=== PATIENT | female | born 1965 | race Caucasian/White ===

== ENCOUNTER 2016-09-15 14:50 | Emergency (ER) | payer MEDICAID ==
[~2016-09-15] VITALS: Ht 154.9 cm; Wt 76.2 kg
[~2016-09-15 14:50] MED LIST: CAPE500T24 PO; CIPR500T87 PO; OXYC5CAP4 PO
[2016-09-15 15:06] VITALS: BP 115/74
== END 2016-09-15 15:40 | disposition home or self-care (01) ==
LOC: ED 15:34
DX: L25.9 Unspecified contact dermatitis, unspecified cause (principal); I10 Essential (primary) hypertension
CPT/HCPCS: 99283

== ENCOUNTER → 2016-12-21 | Outpatient (CLI) | payer MEDICAID ==
[~2016-12-21] MED LIST changes: +OXYC5CAP2 PO; -OXYC5CAP4 PO
== END | disposition home or self-care (01) ==
LOC: RAD 10:16
PROVIDERS: ATTEND Internal Medicine Hematology & Oncology
DX: R91.1 Solitary pulmonary nodule (principal); Z85.038 Personal history of other malignant neoplasm of large intestine; Z85.05 Personal history of malignant neoplasm of liver; Z86.79 Personal history of other diseases of the circulatory system
CPT/HCPCS: 71020

== ENCOUNTER → 2016-12-21 | Outpatient (CLI) | payer MEDICAID ==
[~2016-12-21] MED LIST changes: +OMNIPAQUE 350 MG/ML, 100ML BOTTLE ONE
== END | disposition home or self-care (01) ==
LOC: RAD 12:32
PROVIDERS: ATTEND Internal Medicine Hematology & Oncology
DX: C18.7 Malignant neoplasm of sigmoid colon (principal); C78.7 Secondary malignant neoplasm of liver and intrahepatic bile duct; R91.8 Other nonspecific abnormal finding of lung field
CPT/HCPCS: 71275; Q9967

== ENCOUNTER → 2017-01-25 | Outpatient (CLI) | payer MEDICAID | END | disposition home or self-care (01) | LOC: CFH 11:22 | PROVIDERS: ATTEND Internal Medicine Hematology & Oncology | DX: K76.89 Other specified diseases of liver (principal); D73.89 Other diseases of spleen; C18.7 Malignant neoplasm of sigmoid colon; Z98.890 Other specified postprocedural states; Z90.49 Acquired absence of other specified parts of digestive tract | CPT/HCPCS: 74177; Q9967 ==